=== PATIENT | male | born 1965 | race Caucasian/White ===

== ENCOUNTER → 2016-07-17 | Outpatient (CLI) | payer OTHER ==
[~2016-07-17] MED LIST: LISINOPRIL20 MG PO; VITAMIN D400 UNI1 PO
--- NOTE | ~2016-07-17 | CR181 ---
[facility] A Service of [facility] RADIOLOGY TEXT RESULTS PATIENT: JANNETTE TADEO LOCATION: [place] : [birth year] UNIT #: [id number] AGE: [address]: Iris Xiong MD SEX: M ORDER DR: [id number] [place] [id number] O MR#: [id number] Acc #: [id number] NAME: JANNETTE TADEO : 1965 SEX: M STUDY DATE/TIME: 07/17/2016 11:17 UNIT: SRAD ROOM: STUDY DESCRIPTION: CR Lumbar Spine 2 or 3 Views Attending Physician: Iris Xiong M.D. Referring Physician: Iris Xiong M.D. Ordering Physician: Iris Xiong M.D. Primary Care Physician: Donavan Xiong M.D. MEDICAL IMAGING REPORT This report is preliminary unless electronic signature is present. EXAM Lumbosacral spine. DATE OF EXAMINATION 07/17/2016 COMPARISON None HISTORY Back pain radiating down the left leg for 7 months. FINDINGS AP, lateral, and spot views are obtained. Lumbar alignment is normal. Disc space and vertebral body height is maintained. CONCLUSION Normal Dictated by... Bora Tsang M.D. THIS IS AN ELECTRONICALLY VERIFIED REPORT Bora Tsang M.D. at 07/18/2016 7:25 AM GIDEON/chantell TD: 07/17/2016 12:26 JOB #: [id number] MEDICAL IMAGING REPORT [facility] A Service of [facility] RADIOLOGY TEXT RESULTS PATIENT: JANNETTE TADEO LOCATION: [place] : [birth year] UNIT #: [id number] AGE: [address]: Iris Xiong MD SEX: M ORDER DR: Page 1 of 1
== END | disposition home or self-care (01) ==
LOC: SRAD 11:11
DX: M54.9 Dorsalgia, unspecified (principal)
CPT/HCPCS: 72100